=== PATIENT | male | born 1965 | race African-American/Black ===

== ENCOUNTER 2016-10-23 23:24 | Emergency (ER) | payer OTHER ==
[~2016-10-23] VITALS: Ht 182.9 cm; Wt 91.0 kg
[~2016-10-23 23:24] MED LIST: MEDR4PAK3 PO; MOTR200T PO
[2016-10-23 23:28] VITALS: BP 175/97; PULSE 103; RESP 16; TEMP 99.5; O2SAT 98
[2016-10-24 02:16] VITALS: BP_SYST 189; BP_SYST 195; BP_DIAS 103; BP_DIAS 83; PULSE 64; RESP 18; O2SAT 99
[2016-10-24] MEDS ORDERED: AMLO2.5T PO (02:16)
[2016-10-24 03:03] LABS: AUTOMATED NEUTROPHIL # 3.6 TH/MM3 (1.8-7.7); BASOPHIL % 0.5 % (0.0-2.0); EOSINOPHIL % 0.4 % (0.0-4.0); HEMATOCRIT 43.9 % (39.0-51.0); HEMO FLAGS DIFF FINAL; LYMPH % 23.6 % (9.0-44.0); LYMPHOCYTE # 1.3 TH/MM3 (1.0-4.8); MEAN CELL VOLUME 86.5 FL (80.0-100.0); MEAN CORPUSCULAR HEMOGLOBIN 29.1 PG (27.0-34.0); MEAN CORPUSCULAR HGB CONC 33.7 % (32.0-36.0); MONO % 7.8 % (0.0-8.0); NEUT % 67.7 % (16.0-70.0); PLATELET COUNT 154 TH/MM3 (150-450); RED BLOOD COUNT 5.08 MIL/MM3 (4.50-5.90); RED CELL DISTRIBUTION WIDTH 12.9 % (11.6-17.2); WHITE BLOOD COUNT 5.3 TH/MM3 (4.0-11.0)
--- NOTE | 2016-10-24 03:09 | RADRPT ---
EXAM DATE/TIME: 10/24/2016 02:50 [facility] COMPARISON: No previous studies available for comparison. INDICATIONS : Cough. Elevated blood pressure. MEDICAL HISTORY : Hypertension. SURGICAL HISTORY : None. ENCOUNTER: Initial ACUITY: 1 day PAIN SCORE: 0/10 LOCATION: Bilateral chest FINDINGS: A single view of the chest demonstrates the lungs to be symmetrically aerated without evidence of mas s, infiltrate or effusion. The cardiomediastinal contours are unremarkable. Osseous structures are intact. CONCLUSION: No acute disease. Jose G Prince MD on October 24, 2016 at 3:07 Board Certified Radiologist. This report was verified electronically.
[2016-10-24 03:12] LABS: BLOOD, URINE NEG (NEG); GLUCOSE,URINE NEG (NEG); KETONE, URINE NEG (NEG); MUCUS URINE FEW /lpf (OCC); NITRITE,URINE NEG (NEG); PH, URINE 5.5 (5.0-8.5); URINE COLOR YELLOW (YELLW/STRAW)
[2016-10-24 03:13] LABS: COMMENT (UR) CULT NOT INDICATED; CULTURE IF INDICATED CULT NOT INDICATED
[2016-10-24] MEDS ORDERED: ACETAMINOPHEN 325 MG TAB PO ONE (03:15)
[2016-10-24] MEDS ORDERED: LABETALOL HCL 100 MG/20 ML VIAL IV PUSH ONE (03:15)
--- NOTE | 2016-10-24 03:31 | PD ---
HPI Chief Complaint: Hypertension Time Seen by Provider: 02:12 Travel History International Travel<30 days: No Contact w/Intl Traveler<30days: No Traveled to known affect area: No History of Present Illness HPI The patient is a 50 year old male who presents to the [facility] emergency department with a history of reportedly noticing recently that his blood pressure has been up higher than usual. He reports that he has a history of high blood pressure, however he was not tolerating the amlodipine well. He reports that it made him feel off balance. He told his primary care physician and as he was on a low-dose he was instructed that it was okay to discontinue it. He last saw his primary care physician approximately a year ago. He reports that today he began to have a headache the back of his head associated with the high blood pressure, therefore he decided to come to the emergency department for evaluation and treatment. He denies having any chest pain or chest pressure. He denies having any shortness of breath. He reports that he had a subjective fever and chills prior to arrival. He denies having any cough , congestion, or sore throat. He does however report having a clear rhinorrhea earlier today. He also reports having diarrhea earlier today approximately 3 times. He denies having any blood in his stool or mucus in his stool. He denies any recent antibiotic use or sick contacts. On review of systems, the patient denies any neck stiffness, abdominal pain, vomiting, urinary symptoms, or neurologic symptoms. [facility] Past Medical History Narrative Medical The patient's past medical history is significant for high blood pressure. Cancer: No Cardiovascular Problems: No Diabetes: No Diminished Hearing: No Endocrine: No Genitourinary: No Hepatitis: No Hiatal Hernia: No Immune Disorder: No Musculoskeletal: No Neurologic: No Psychiatric: No Reproductive: No Respiratory: No Immunizations Current: Yes Thyroid Disease: No Tetanus Vaccination: Unknown Influenza Vaccination: No Past Surgical History Narrative Surgical The patient's past surgical history is significant for a right bunionectomy, trigger finger release of 3 fingers on the right hand. Joint Replacement: No Pacemaker: No Other Surgery: Yes Social History Alcohol Use: No Tobacco Use: No Substance Use: No Allergies-Medications (Allergen,Severity, Reaction): Coded Allergies: No Known Allergies (Verified , 10/23/16) Reported Meds & Prescriptions Reported Meds & Active Scripts Active Reported Amlodipine (Amlodipine Besylate) 2.5 Mg Tab 2.5 Mg PO DAILY Review of Systems Except as stated in HPI: all other systems reviewed are Neg General / Constitutional: No: Fever Eyes: No: Visual changes HENT: Positive: Headaches, No: Neck Stiffness, Neck Pain Cardiovascular: No: Chest Pain or Discomfort Respiratory: No: Shortness of Breath Gastrointestinal: No: Abdominal Pain Genitourinary: No: Dysuria Musculoskeletal: No: Pain Skin: No Rash Neurologic: No: Weakness, Focal Abnormalities, Change in Mentation, Slurred Speech, Sensory Disturbance Psychiatric: No: Depression Endocrine: No: Polydipsia Hematologic/Lymphatic: No: Easy Bruising Physical Exam Narrative General: The patient is a well-developed well-nourished male in no acute distress. Head and Neck exam: Head is normocephalic atraumatic. Eyes: EOMI, pupils are equal round and reactive to light. Nose: Midline septum with pink mucous membranes Mouth: Dentition unremarkable. Moist mucus membranes. Posterior oropharynx is not erythematous. No tonsillar hypertrophy. Uvula midline. Airway patent. Neck: No palpable lymphadenopathy. No nuchal rigidity. No thyromegaly. Cardiovascular: Regular rate and rhythm without murmurs, gallops, or rubs. No pulse deficit to the extremities and simultaneous auscultation and palpation of his radial artery. Lungs: Clear to auscultation bilaterally. No wheezes, rhonchi, or rales. Abdomen: Soft, without tenderness to palpation in all 4 quadrants of the abdomen. No guarding, rebound, or rigidity. No bowel sounds are audible. No tenderness on palpation of McBurney's point. Extremities: No clubbing, cyanosis, or edema. 2+ pulses in all 4 extremities. No calf tenderness on palpation. Back: No spinous process tenderness to palpation. No costovertebral angle tenderness to palpation. Neurologic Exam: Grossly nonfocal. Skin Exam: No rash noted. Intact skin that is warm and dry. Data Data Last Documented VS Vital Signs Date Time Temp Pulse Resp B/P Pulse Ox O2 Delivery O2 Flow Rate FiO2 10/24/16 03:49 56 18 175/97 100 Room Air 10/23/16 23:28 99.5 Orders Complete Blood Count With Diff (10/24/16 02:37) Basic Metabolic Panel (Bmp) (10/24/16 02:37) Creatine Kinase (Cpk) (10/24/16 02:37) Ckmb (Isoenzyme) Profile (10/24/16 02:37) Troponin I (10/24/16 02:37) Urinalysis - C+S If Indicated (10/24/16 02:37) Chest, Single Ap (10/24/16 02:37) Ct Brain W/O Iv Contrast(Rout) (10/24/16 02:37) Iv Access Insert/Monitor (10/24/16 02:37) Ecg Monitoring (10/24/16 02:37) Oximetry (10/24/16 02:37) Labetalol Inj (Trandate Inj) (10/24/16 03:15) Acetaminophen (Tylenol) (10/24/16 03:15) CKMB (10/24/16 02:45) CKMB% (10/24/16 02:45) Labs Laboratory Tests Test 10/24/16 02:45 White Blood Count 5.3 TH/MM3 Red Blood Count 5.08 MIL/MM3 Hemoglobin 14.8 GM/DL Hematocrit 43.9 % Mean Corpuscular Volume 86.5 FL Mean Corpuscular Hemoglobin 29.1 PG Mean Corpuscular Hemoglobin 33.7 % Concent Red Cell Distribution Width 12.9 % Platelet Count 154 TH/MM3 Mean Platelet Volume 9.3 FL Neutrophils (%) (Auto) 67.7 % Lymphocytes (%) (Auto) 23.6 % Monocytes (%) (Auto) 7.8 % Eosinophils (%) (Auto) 0.4 % Basophils (%) (Auto) 0.5 % Neutrophils # (Auto) 3.6 TH/MM3 Lymphocytes # (Auto) 1.3 TH/MM3 Monocytes # (Auto) 0.4 TH/MM3 Eosinophils # (Auto) 0.0 TH/MM3 Basophils # (Auto) 0.0 TH/MM3 CBC Comment DIFF FINAL Differential Comment Urine Color YELLOW Urine Turbidity CLEAR Urine pH 5.5 Urine Specific [place] 1.022 Urine Protein NEG mg/dL Urine Glucose (UA) NEG mg/dL Urine Ketones NEG mg/dL Urine Occult Blood NEG Urine Nitrite NEG Urine Bilirubin NEG Urine Urobilinogen LESS THAN 2.0 MG/DL Urine Leukocyte Esterase NEG Urine RBC LESS THAN 1 /hpf Urine WBC LESS THAN 1 /hpf Urine Mucus FEW /lpf Microscopic Urinalysis Comment CULT NOT INDICATED Sodium Level 140 MEQ/L Potassium Level 4.4 MEQ/L Chloride Level 104 MEQ/L Carbon Dioxide Level 30.0 MEQ/L Anion Gap 6 MEQ/L Blood Urea Nitrogen 18 MG/DL Creatinine 1.22 MG/DL Estimat Glomerular Filtration 76 ML/MIN Rate Random Glucose 94 MG/DL Calcium Level 9.4 MG/DL Total Creatine Kinase 344 U/L Creatine Kinase MB 3.4 NG/ML Creatine Kinase MB % 1.0 % Troponin I LESS THAN 0.02 NG/ML MDM Medical Decision Making Medical Screen Exam Complete: Yes Emergency Medical Condition: Yes Medical Record Reviewed: Yes Interpretation(s) Last Impressions Head CT 10/24/16236 Signed Impressions: Service Date/Time: Monday, October 24, 2016 03:25 - CONCLUSION: Unremarkable noncontrast head CT. Jose G Prince MD Chest X-Ray 10/24/16236 Signed Impressions: Service Date/Time: Monday, October 24, 2016 02:50 - CONCLUSION: No acute disease. Jose G Prince MD Differential Diagnosis Poorly controlled hypertension, versus intracranial hemorrhage, versus acute coronary syndrome, versus renal injury related to prolonged uncontrolled high blood pressure Narrative Course During the course of the patients emergency department visit, the patients history, examination, and differential diagnosis were reviewed with the patient. The patient had IV access obtained and blood work sent for analysis. The patient was placed on a surveillance system monitor with oximetry and blood pressure monitoring. An EKG was done. The patient's EKG on arrival shows a sinus rhythm heart rate of 61, QRS duration is 106 ms, QTC is 375 ms with early repolarization noted, no acute ST segment elevation or depression. T waves are inverted in V1. The patient was initially provided labetalol 5 mg IV times one. Tylenol 650 by mouth 1 for headache. The patients laboratory studies were reviewed and remarkable for a CBC that is within normal limits. BMP is unremarkable, CPK 344, MB percent 1.0, troponin I less than 0.02 Radiology studies were reviewed and remarkable for a chest x-ray that shows no acute abnormality, CT scan of the brain shows no acute abnormality. The patient's results were discussed with him and he reports feeling improved. The patient had tried amlodipine in the past and reported not tolerating the medicine while the patient will instead be started on lisinopril/ hydrochlorothiazide and low-dose with close follow-up with his primary care physician for recheck of his blood pressure. The patient is resting comfortably and feels better, is alert and in no distress. The patients results and examination findings were discussed with the patient. The repeat examination is unremarkable and benign. The history, exam, diagnostic testing, and current condition do not suggest any significant pathology to warrant further testing, continued ED treatment, admission, or surgical evaluation at this point. The vital signs have been stable. The patient does not have uncontrollable pain, intractable vomiting, or other significant symptoms. The patient's condition is stable and appropriate for discharge. The patient will pursue further outpatient evaluation with a primary care physician or other designated or consulting physician as indicated in the discharge instructions. The patient expressed understanding and was agreeable with this plan. Diagnosis Primary Impression: Poorly-controlled hypertension Referrals: Primary Care Physician 3 days Patient Instructions: General Instructions, Hypertension (ED) Med/Other Pt SpecificInfo: Prescription(s) given Scripts Lisinopril-Hctz 10-12.5 Mg Tab1 Tab PO DAILY #30 TAB Ref 0 Prov:Blaire Edmondson MD 10/24/16 Disposition: DISCHARGE HOME Condition: Stable Blaire Edmondson MD October 24, 2016 03:30
[2016-10-24 03:32] LABS: CREATINE KINASE 344 U/L (39-308)
[2016-10-24 03:36] LABS: ANION GAP 6 MEQ/L (5-15); BLOOD UREA NITROGEN 18 MG/DL (7-18); CHLORIDE 104 MEQ/L (98-107); GLOMERULAR FILTRATION RATE 76 ML/MIN (>89); POTASSIUM 4.4 MEQ/L (3.5-5.1); SODIUM (NA) 140 MEQ/L (136-145)
[2016-10-24 03:44] LABS: CKMB 3.4 NG/ML (0.5-3.6)
[2016-10-24 03:49] VITALS: BP 175/97; PULSE 56; RESP 18; O2SAT 100
--- NOTE | 2016-10-24 03:49 | RADRPT ---
EXAM DATE/TIME: 10/24/2016 03:25 [facility] COMPARISON: No previous studies available for comparison. INDICATIONS : Cephalgia. RADIATION DOSE: 40.25 CTDIvol (mGy) MEDICAL HISTORY : None SURGICAL HISTORY : None. ENCOUNTER: Initial ACUITY: 1 day PAIN SCALE: 4/10 LOCATION: cranial TECHNIQUE: Multiple contiguous axial images were obtained of the head. Using automated exposure control and adj ustment of the mA and/or kV according to patient size, radiation dose was kept as low as reasonably a chievable to obtain optimal diagnostic quality images. FINDINGS: CEREBRUM: The ventricles are normal for age. No evidence of midline shift, mass lesion, hemorrhage or acute in farction. No extra-axial fluid collections are seen. POSTERIOR FOSSA: The cerebellum and brainstem are intact. The 4th ventricle is midline. The cerebellopontine angle i s unremarkable. EXTRACRANIAL: The visualized portion of the orbits is intact. SKULL: The calvaria is intact. No evidence of skull fracture. CONCLUSION: Unremarkable noncontrast head CT. Jose G Prince MD on October 24, 2016 at 3:47 Board Certified Radiologist. This report was verified electronically.
[2016-10-24] MEDS ORDERED: LISI10TA PO (04:50)
[2016-10-24 05:00] VITALS: BP 157/99; PULSE 58; RESP 16; O2SAT 96
--- NOTE | 2016-10-24 15:49 | EKG ---
Date Performed: 10/24/2016 Time Performed: 02:22:45 PTAGE: 50 years EKG: Sinus rhythm EARLY REPOLARIZATION Compared to the previous tracing sinus rate has increased BORDERLINE ECG PREVIOUS TRACING : 08/05/12 DOCTOR: Rodriugez Zazueta Interpretating Date/Time 10/24/2016 15:49:03
== END 2016-10-24 05:19 | disposition home or self-care (01) ==
LOC: NEPE 23:24
DX: I10 Essential (primary) hypertension (principal)
CPT/HCPCS: 70450; 71010; 80048; 81001; 82550; 82552; 84484; 85025; 93005; 96374

== ENCOUNTER → 2017-02-13 | Outpatient (CLI) | payer OTHER ==
[~2017-02-13] MED LIST changes: +AMLO2.5T PO; +LISI10TA PO; -MEDR4PAK3 PO; -MOTR200T PO
[2017-02-13 07:34] LABS: ANION GAP 6 MEQ/L (5-15); AST (GOT) 21 U/L (15-37); BICARBONATE 26.8 MEQ/L (21.0-32.0); BLOOD UREA NITROGEN 19 MG/DL (7-18); CHLORIDE 106 MEQ/L (98-107); GLOMERULAR FILTRATION RATE 76 ML/MIN (>89); GLUCOSE,FASTING 101 MG/DL (74-99); POTASSIUM 4.2 MEQ/L (3.5-5.1); SODIUM (NA) 139 MEQ/L (136-145)
[2017-02-13 07:39] LABS: ALKALINE PHOSPHATASE 87 U/L (45-117); ALT (GPT) 51 U/L (12-78); LDL CHOLESTEROL 82 MG/DL (0-99); TOTAL BILIRUBIN ADULT 0.7 MG/DL (0.2-1.0)
== END ==
LOC: CLAB 06:32
PROVIDERS: ATTEND Family Medicine
DX: K76.0 Fatty (change of) liver, not elsewhere classified (principal)
CPT/HCPCS: 36415; 80053; 80061; 84153

== ENCOUNTER → 2017-05-21 | Outpatient (CLI) | payer OTHER ==
[2017-05-21 09:52] LABS: POTASSIUM 4.2 MEQ/L (3.5-5.1)
[2017-05-21 09:56] LABS: URIC ACID 6.6 MG/DL (2.6-7.2)
== END ==
LOC: CLAB 08:50
PROVIDERS: ATTEND Family Medicine
DX: I10 Essential (primary) hypertension (principal); R29.898 Other symptoms and signs involving the musculoskeletal system
CPT/HCPCS: 36415; 84132; 84550